=== PATIENT | female | born 1955 | race Two or more races ===

== ENCOUNTER 2024-12-01 16:05 | Emergency (ER) | payer MEDICAID, SELFPAY ==
[2024-12-01 16:50] VITALS: BP 145/74; PULSE 89; RESP 18; TEMP 37; O2SAT 96
--- NOTE | 2024-12-01 16:58 | XR_ITS ---
Examination: CT cervical spine without contrast 2-D sagittal reconstructions 2-D coronal reconstructions 3-D reconstructions. Exam date and time:December 01, 2024 1842 hrs. Indications: Onset neck pain beginning 3 days ago CTDI:vol (mGy) 15.3 DLP: (mGycm) 338 Technique: Multiple 2 mm axial sections of the cervical spine have been obtained. The coronal and sagittal reconstructions have been obtained. 3-D reconstructions have been obtained. Low dose protocols were performed. One or more of the following dose reduction techniques were used; automated exposure control, adjustment of the mA and/or KV according to patient size, use of iterative reconstruction technique. Findings: Axial sections demonstrate intact base of the skull. C1 exhibit satisfactory relationship to the odontoid. No acute cervical vertebral body fracture seen. Alignment posterior spinous processes satisfactory. Significant disc narrowing C6-C7 with posterior osteophyte formation C6-C7 2 mm central subarticular osteophyte disc complex with mild bilateral neural foraminal stenosis Impression: No acute cervical fracture. Impression: Significant degenerative disc disease C6-C7 Consider elective MRI cervical spine without contrast follow-up for best assessment of acquired soft tissue spinal stenosis
--- NOTE | 2024-12-01 16:58 | PD.EDRME ---
Rapid Medical Screening Exam RME Arrival date/time: 12/01/24 16:05 69-year-old female presents emergency department complains of neck pain Chief Complaint: Neck Pain/Injury Time Seen by Provider: 12/01/24 16:56 Vital signs: Vital Signs Temperature 98.6 F 12/01/24 16:50 Pulse Rate 89 12/01/24 16:50 Respiratory Rate 18 12/01/24 16:50 Blood Pressure 145/74 H 12/01/24 16:50 Pulse Oximetry (%) 96 12/01/24 16:50 Oxygen Delivery Method Room Air 12/01/24 16:50
[2024-12-01] MEDS: IBUPROFEN TAB 400 MG TABLET 800 MG PO (17:04)
[2024-12-01] MEDS: CYCLObenzaPRINE 5 MG TABLET PO (17:04)
[2024-12-01 19:30] VITALS: BP 124/74; PULSE 88; RESP 17; TEMP 36.8; O2SAT 96
--- NOTE | 2024-12-01 20:08 | PD.EDNECK ---
ED Neck Injury Pain RME/HPI General Chief Complaint: Neck Pain/Injury Stated Complaint: CAN'T MOVE NECK X 3 DAYS BECAUSE OF PAIN Time Seen by Provider: 12/01/24 16:56 Arrival date/time: 12/01/24 16:05 RME / HPI RME / HPI Narrative: 69-year-old female patient came in for evaluation regarding posterior neck pain. Onset of symptoms for the last 3 days as worsening posterior neck pain associated with difficulty moving the neck. Denies any fever denies any fall denies any other complaints patient is ambulatory with rollator walker. Related Data Home Medications ?Medication ?Instructions ?Recorded ?Confirmed atorvastatin 10 mg tablet 20 mg PO QDAY 03/30/20 06/02/24 sitagliptin phosphate 50 mg tablet 50 mg PO QDAY 03/30/20 06/02/24 (Januvia) famotidine 40 mg tablet 20 mg PO QAM 08/17/20 06/02/24 levothyroxine 75 mcg tablet 75 mcg PO QAM 07/18/21 06/02/24 hydrochlorothiazide 25 mg tablet 25 mg PO QAM 06/09/22 06/02/24 amlodipine 10 mg tablet 10 mg PO QDAY 06/02/24 06/03/24 Previous Rx's ?Medication ?Instructions ?Recorded ibuprofen 600 mg tablet 600 mg PO Q8H PRN pain #30 tabs 06/04/24 hydrocodone 5 mg-acetaminophen 325 1 tab PO BID PRN pain #10 tabs 06/11/24 mg tablet ibuprofen 600 mg tablet 600 mg PO Q8H PRN fever or pain 08/18/24 #30 tabs meloxicam 15 mg tablet 15 mg PO QDAY #20 tabs 12/01/24 naproxen 500 mg tablet (Naprosyn) 500 mg PO BID PRN pain #20 tabs 12/01/24 Allergies Allergy/AdvReac Type Severity Reaction Status Date / Time No Known Allergies Allergy Verified 12/01/24 16:06 Review of Systems Review of Systems Narrative Review of Systems: Review of system reviewed and within normal limits except mentioned in HPI ED Exam Narrative Physical exam: VITAL SIGNS: Reviewed. GENERAL APPEARANCE: Alert and interactive, follows commands, no acute distress, HEAD AND FACE: Non-traumatic. ENT: PERRL, pink conjunctivitis, eyelid no trauma, Mucous membrane moist. NECK: Posterior neck tenderness, with limitation of range of motion CHEST: No tenderness, no crepitus, no paradoxical movement, no retractions. LUNGS: Clear, well ventilated, symmetric, no rales, no wheezing, no ronchi, no stridor, good breath sounds bilaterally. HEART: Regular rate, regular rhythm, no murmur, no gallops. ABDOMEN: Soft, positive bowel sounds, nondistended, no guarding, nontender, no rebound, no masses, RECTAL: Deferred. GENITAL: Deferred. NEUROLOGICAL: Gross motor function intact sensory function intact, Appropriate for age. MUSCULOSKELETAL: low back nontender, full range of motion. EXTREMITIES: Nontender, full range of motion. SKIN: Color pink, dry, no rash, no lacerations, no abrasions, no contusions. LYMPHATICS: Deferred. Course Quality Measures none Orders Category Date Time Status CT cervical spine wo con Stat Exams 12/01/24 16:58 Completed CYCLObenzaPRINE [Flexeril] Med 12/01/24 16:57 Discontinued 5 mg PO X1 ONE Ibuprofen Tab [Motrin Tab] Med 12/01/24 16:57 Discontinued 800 mg PO X1 ONE Vital Signs Vital signs: Vital Signs Temperature 98.6 F 12/01/24 16:50 Pulse Rate 89 12/01/24 16:50 Respiratory Rate 18 12/01/24 16:50 Blood Pressure 145/74 H 12/01/24 16:50 Pulse Oximetry (%) 96 12/01/24 16:50 Oxygen Delivery Method Room Air 12/01/24 16:50 Neck Pain MDM Narrative MDM Narrative:: 69-year-old female patient came in for evaluation regarding posterior neck pain. Onset of symptoms for the last 3 days as worsening posterior neck pain associated with difficulty moving the neck. Denies any fever denies any fall denies any other complaints patient is ambulatory with rollator walker. CT scan of the cervical spine showed degenerative changes between C6 and C7. Otherwise unremarkable. Patient received Flexeril and ibuprofen with significant for many pain. Patient data External records reviewed:: None Clinical information provided by:: patient Social determinants that could affect healthcare access:: none Patient has the following chronic illnesses:: None How is presenting disease/condition affected by chronic disease/condition?: exacerbated by Evaluation data The following diagnostics were reviewed and interpreted by me:: lab results and radiology exam(s) Lab and/or radiology exams considered but not ordered:: None Interpretation Summary: CT scan of the neck showed degenerative changes between C6 and C7 otherwise unremarkable. Results discussed with the patient. None Medications / Prescriptions Medications or Prescriptions considered but not ordered:: None Medication administrations:: Medication Administration History Discontinued Medications Cyclobenzaprine HCl (Cyclobenzaprine 5 Mg Tablet) 5 mg PO X1 ONE Stop: 12/01/24 16:58 Last Admin: 12/01/24 17:04 Dose: 5 mg Documented By: OA Ibuprofen (Ibuprofen Tab 400 Mg Tablet) 800 mg PO X1 ONE Stop: 12/01/24 16:58 Last Admin: 12/01/24 17:04 Dose: 800 mg Documented By: OA Flexeril and Motrin Consultations Consultation(s) initiated? (list below): No Diagnosis Neck Differential Diagnosis: disc disorder of cervical region, closed subluxation of cervical spine and torticollis Most likely diagnosis given after review of the tests above:: Cervical spondylosis Admission Indicated Admission indicated?: not indicated Explain why admission is indicated or not indicated:: Stable Admission Request Was there a request for admission?: No Disposition Plan Disposition Plan: Discharge Discharge Attestation Discharge Attestation: The patient was given an opportunity to ask questions and understood the discharge instructions. Discharge instructions specifically effects, indications for sooner follow up or return to the emergency department, and the expected course of current diagnosis. Patient condition: Stable Discharge Plan Plan Patient Disposition: HOME (Self Care) Disposition Comment: stable Prescriptions/Referrals Prescriptions/Med Rec: New meloxicam 15 mg tablet 15 mg PO QDAY Qty: 20 0RF naproxen [Naprosyn] 500 mg tablet 500 mg PO BID PRN (Reason: pain) Qty: 20 0RF No Action famotidine 40 mg Tablet 20 mg PO QAM Rx Instructions: TAKE 1 TABLET BY MOUTH EVERYDAY IN THE MORNING hydrochlorothiazide 25 mg Tablet 25 mg PO QAM Januvia 50 mg Tablet 50 mg PO QDAY Rx Instructions: TAKE ONE TABLET BY MOUTH DAILY atorvastatin 10 mg Tablet 20 mg PO QDAY Rx Instructions: TAKE 1 TABLET BY MOUTH EVERY DAY levothyroxine 75 mcg Tablet 75 mcg PO QAM Rx Instructions: TAKE 1 TABLET BY MOUTH IN THE MORNING ON AN EMPTY STOMACH hydrocodone-acetaminophen 5-325 mg tablet 1 tab PO BID MDD 10 PRN (Reason: pain) Qty: 10 0RF ibuprofen 600 mg tablet 600 mg PO Q8H PRN (Reason: fever or pain) Qty: 30 0RF amlodipine 10 mg Tablet 10 mg PO QDAY ibuprofen 600 mg tablet 600 mg PO Q8H PRN (Reason: pain) Qty: 30 0RF Referrals: Ridge Morton MD [Primary Care Provider] - In 1 week Problem List Clinical Impression: Cervical spondylosis Patient/Caregiver Discharge Instructions Discharge Activity: activity as tolerated Education Materials: ED Neck Pain Additional Instructions: Thank you for the opportunity for serving you today. You are stable for discharged . You are advised to: Follow-up with your PCP in 1 to 2 days and ask your PCP to refer to physical therapy Return to ED for worsening of symptoms Increase oral fluids Take medication as prescribed Print Language: Kinyarwanda Stand Alone Forms: Christal Award Info., Patient Portal Info Letter PA/SAIBNE Supervising Physician ANDREY/SABINE Supervising Physician: MD Ortega
== END 2024-12-01 20:17 | disposition home or self-care (01) ==
PROVIDERS: Emergency Provider Emergency Medicine; PCP Family Medicine
DX: M47.812 Spondylosis without myelopathy or radiculopathy, cervical region (principal); M50.323 Other cervical disc degeneration at C6-C7 level
CPT/HCPCS: 72125; 99284; A9270

== ENCOUNTER 2025-02-13 18:56 | Emergency (ER) | payer MEDICAID, SELFPAY ==
[2025-02-13 20:12] VITALS: BP 157/82; PULSE 78; RESP 18; TEMP 36.7; O2SAT 92
--- NOTE | 2025-02-13 20:46 | XR_ITS ---
Examination: CT abdomen and pelvis without contrast. Coronal 3-D reconstructions. Sagittal 2-D reconstructions. Date and time of exam:February 14, 2025 1115 hrs. Comparison September 26, 2022 Indications: Right-sided flank pain beginning one week ago CTDI: vol (mGy): 16.1 DLP: (mGycm): 894 Technique: Axial images of the abdomen have been obtained, 3 mm slice thickness Intravenous contrast material has not been administered. Low dose protocols were performed. One or more of the following dose reduction techniques were used; automated exposure control, adjustment of the mA and/or KV according to patient size, use of iterative reconstruction technique. Findings: No focal liver or splenic lesions No gallstones No pancreatic mass Moderate bilateral renal parenchymal scar formation with minimal perinephric stranding No renal or ureteral calculi, no hydronephrosis 8mm fat-containing umbilical hernia Normal appendix No bowel obstruction No diverticulitis Atrophic uterus No bladder mass or bladder calculi Impression: Moderate bilateral renal parenchymal scar formation with minimal perinephric stranding, consider urinary tract infection No hydronephrosis or ureteral calculi Normal appendix No bladder mass or bladder calculi
--- NOTE | 2025-02-13 20:46 | XR_ITS ---
Examination: PA lateral chest 2 views Technique: Upright PA lateral chest 2 views Exam date and time: February 13, 20252058 hrs. Indications: Shortness of breath hypoxia today. Findings: Left base pneumonia, obscuring detail left hemidiaphragm Lingular segment pneumonia Mild prominence of ventricle Moderate vascular congestion Prominent osteopenia Impression: Left base and lingular segment pneumonia
[2025-02-13 21:21] LABS: Basophils # (Auto) 0.1 Thou/mm3 (0.0-0.2); Basophils % (Auto) 1 % (0-2.5); Eosinophils # (Auto) 0.4 Thou/mm3 (0.0-0.5); Eosinophils % (Auto) 3 % (0-10); Hematocrit 41.9 % (36.0-46.0); Hemoglobin 13.8 g/dL (12.0-16.0); Immature Granulocytes % (Auto) 0 % (0-0); Immature Granulocytes Auto 0.04 Thou/mm3 (0.00-0.00); Lymphocytes % (Auto) 25 % (10-50); Mean Corpuscular HGB Conc 32.9 g/dl (31.0-37.0); Mean Corpuscular Hemoglobin 28.5 pg (25.0-35.0); Mean Corpuscular Volume 86 fL (80-100); Monocytes # (Auto) 1.1 Thou/mm3 (0.0-0.8); Monocytes % (Auto) 9 % (0-12); Neutrophils # (Auto) 7.7 Thou/mm3 (1.8-7.7); Neutrophils % (Auto) 63 % (37-80); Nucleated Red Blood Cell % 0 /100 WBC (0); Platelet Count 351 Thou/mm3 (140-440); RDW Standard Deviation 45.2 fL (36.4-46.3); Red Blood Count 4.85 Miln/mm3 (4.00-5.20); White Blood Count 12.3 Thou/mm3 (3.6-11.0)
--- NOTE | 2025-02-13 21:37 | PD.EDFMALE ---
ED Female Urogenital RME/HPI General Chief complaint: Urogenital-Female Stated complaint: R FLANK PAIN X1 WEEK Time Seen by Provider: 02/13/25 20:13 Arrival date/time: 02/13/25 18:56 Limitations: no limitations RME / HPI RME / HPI Narrative: 69-year-old female with past medical history of hypertension, hyperlipidemia, diabetes, thyroid disorder presents for evaluation of right flank pain x 1 week She reports constant, aching of the right flank without radiation. Patient notes intermittent shortness of breath and cough x 1 week. Denies hematuria, dysuria, fever, chills, chest pain,leg swelling. Patient reports she uses CPAP machine at night. Denies recent travel, known sick contacts, recent surgery, recent antibiotic use. Related Data Home Medications ?Medication ?Instructions ?Recorded ?Confirmed atorvastatin 10 mg tablet 20 mg PO QDAY 03/30/20 06/02/24 sitagliptin phosphate 50 mg tablet 50 mg PO QDAY 03/30/20 06/02/24 (Januvia) famotidine 40 mg tablet 20 mg PO QAM 08/17/20 06/02/24 levothyroxine 75 mcg tablet 75 mcg PO QAM 07/18/21 06/02/24 hydrochlorothiazide 25 mg tablet 25 mg PO QAM 06/09/22 06/02/24 amlodipine 10 mg tablet 10 mg PO QDAY 06/02/24 06/03/24 Previous Rx's ?Medication ?Instructions ?Recorded ibuprofen 600 mg tablet 600 mg PO Q8H PRN pain #30 tabs 06/04/24 hydrocodone 5 mg-acetaminophen 325 1 tab PO BID PRN pain #10 tabs 06/11/24 mg tablet ibuprofen 600 mg tablet 600 mg PO Q8H PRN fever or pain 08/18/24 #30 tabs meloxicam 15 mg tablet 15 mg PO QDAY #20 tabs 12/01/24 naproxen 500 mg tablet (Naprosyn) 500 mg PO BID PRN pain #20 tabs 12/01/24 Allergies Allergy/AdvReac Type Severity Reaction Status Date / Time No Known Allergies Allergy Verified 02/13/25 18:57 Review of Systems Constitutional Constitutional: Reports body ache(s), Denies chills, Denies excessive sweating, Denies fever(s) and Denies weakness ENT Ears, Nose, Mouth, and Throat: Denies neck pain and Denies vertigo Cardiovascular Cardiovascular: Denies chest pain, Denies diaphoresis, Reports dyspnea and Denies leg edema Respiratory Respiratory: Denies change in phlegm color, Reports cough, Reports dyspnea, Denies excessive phlegm production and Denies hemoptysis Gastrointestinal Gastrointestinal: Denies abdominal pain, Denies diarrhea, Denies hematochezia, Denies nausea and Denies vomiting Genitourinary Genitourinary: Denies dysuria, Reports flank pain, Denies hematuria and Denies pelvic pain Musculoskeletal Musculoskeletal: Denies abnormal gait, Denies back pain, Denies neck pain and Denies numbness Integumentary/Breasts Skin/Breast: Denies change in pigmentation and Denies erythema Neurologic Neurologic: Denies abnormal gait, Denies confusion, Denies numbness, Denies vertigo and Denies weakness Psychiatric Psychiatric: Denies confusion Endocrine Endocrine: Denies excessive sweating Past Medical History Past Medical History NEUROLOGIC: Positive Neurological Disorders and Migraine; Negative Seizures, Amyotrophic Lateral Sclerosis (ALS/Susan Gehrig's) or Head Trauma CARDIAC: Positive Cardiac Disorders, Hypercholesterolemia and Hypertension; Negative Congestive Heart Failure, Edema or Cellulitis RESPIRATORY: Negative Chronic Obstructive Pulmonary Disease (COPD), Asthma, Pneumonia, Tuberculosis or Sleep Apnea GASTROINTESTINAL: Positive Gastrointestinal Disorders, Gastroesophageal Reflux Disease and Obesity; Negative Hepatitis GENITOURINARY: Negative Genitourinary Disorders or Renal Disease REPRODUCTIVE: Positive Previous Pregnancies MUSCULOSKELETAL: Positive Musculoskeletal Disorders and Arthritis ENT: Positive Cataracts; Negative Head Trauma ENDOCRINE: Positive Endocrine Disorders, Diabetes Mellitus Type 2 and Hypothyroidism; Negative Diabetes Mellitus Type 1 HEMATOLOGIC: Positive Blood Disorders and Anemia; Negative Sickle Cell Disease OTHER HISTORY: Positive Falls and Measles; Negative Hospitalization, Autoimmune Disease, Shingles, Blood Transfusions, Blood Transfusion Reaction, Anesthesia Reactions, Organ Transplant, Chemotherapy, Radiation Therapy, MRSA, Chicken Pox, Mumps or Cancer Family History FAMILY HISTORY: Positive Family Cardiac Disorders, Family Cancer and Family Surgery; Negative Family Psychiatric Problems, Family Respiratory Disorders, Family Gastrointestinal Problems or Family Anesthesia Reaction Surgical History SURGICAL: Positive Open Reduction Internal Fixation (Right ankle has metal), Tubal Ligation and Section; Negative Cardiac Surgery, Pacemaker, Ear Surgery, Abdominal Surgery, Nephrectomy, Neurologic Surgery, Brain Shunt or Organ Transplant Social History SMOKING STATUS: Never smoker ED Exam General Limitations: Present no limitations General appearance: Present alert and in no apparent distress Head Head exam: Present atraumatic and normocephalic Eye Eye exam: Present normal appearance, PERRL and EOMI; Absent scleral icterus ENT ENT exam: Present normal exam, mucous membranes moist and other (lower endentulous ) Chest Chest inspection: Present normal inspection and symmetric chest wall rise Respiratory Respiratory exam: Present normal lung sounds bilaterally; Absent respiratory distress or wheezes Cardiovascular Cardiovascular exam: Present regular rate and +S1 Abdominal Exam Abdominal exam: Present soft; Absent distention, tenderness or guarding Back Exam Back exam: Present CVA tenderness (R); Absent CVA tenderness (L) Neurological Exam Neurological exam: Present alert Psychiatric Psychiatric exam: Present normal affect Skin Skin exam: Present warm, dry and normal color Course Quality Measures none Orders Category Date Time Status Insert IV NOW Care 02/14/25 03:[address] abdomen pelvis wo con Stat Exams 02/13/25 20:46 Ordered CXR2 [XR chest 2V] Stat Exams 02/13/25 20:46 Completed BNP [B-Type Natriuretic Peptide] Stat Lab 02/13/25 21:10 Completed CBC Stat Lab 02/13/25 21:10 Completed CMP [Comprehensive Metabolic Panel] Stat Lab 02/13/25 21:10 Completed Lipase Stat Lab 02/13/25 21:10 Completed UA, C/S IF [Urinalysis, C/S if Indicated] Stat Lab 02/14/25 00:13 Completed HYDROcodone*/APAP 5/325 [[place] 5/325] Med 02/13/25 20:46 Discontinued 1 tab PO X1 ONE HYDROcodone*/APAP 5/325 [[place] 5/325] Med 02/14/25 01:03 Discontinued 1 tab PO X1 ONE HYDROmorphone INJ [Dilaudid Inj] Med 02/14/25 03:22 Discontinued 1 mg IVP X1 ONE Sodium Chloride 0.9% 500 ml [Ns] 500 ml Med 02/14/25 03:23 Discontinued IV 999 mls/hr Reevaluation(s) Reevaluation #1: pt reports 10/10 pain following norco 5mg x2. Will give 1mg dilaudid. Time: 04:09 Vital Signs Vital signs: Vital Signs Temperature 98.1 F 02/13/25 20:12 Pulse Rate 78 02/13/25 20:12 Respiratory Rate 18 02/13/25 20:12 Blood Pressure 157/82 H 02/13/25 20:12 Pulse Oximetry (%) 92 L 02/13/25 20:12 Oxygen Delivery Method Room Air 02/13/25 20:12 Pulse ox 95% on room air, within normal limits. Urogenital - Female Patient data External records reviewed:: [facility] previous records Clinical information provided by:: patient Social determinants that could affect healthcare access:: none Patient has the following chronic illnesses:: DM, HTN, HLD, CKD. How is presenting disease/condition affected by chronic disease/condition?: exacerbated by Evaluation data The following diagnostics were reviewed and interpreted by me:: lab results and radiology exam(s) Lab and/or radiology exams considered but not ordered:: Pending CT. Interpretation Summary: Borderline leukocytosis, no evidence of anemia. Mildly hyperglycemic. Decreased renal function. No evidence of infection on UA. Lipase mildly elevated. Medications / Prescriptions Medications or Prescriptions considered but not ordered:: Rx given. Medication administrations:: Medication Administration History Discontinued Medications Hydrocodone Bitart/Acetaminophen (Hydrocodone/Apap 5/325 Tablet) 1 tab PO X1 ONE Stop: 02/13/25 20:47 Last Admin: 02/13/25 23:18 Dose: 1 tab Documented By: HOLLY Hydrocodone Bitart/Acetaminophen (Hydrocodone/Apap 5/325 Tablet) 1 tab PO X1 ONE Stop: 02/14/25 01:04 Last Admin: 02/14/25 01:26 Dose: 1 tab Documented By: HOLLY Hydromorphone HCl (Hydromorphone Inj 2 Mg/Ml Vial) 1 mg IVP X1 ONE Stop: 02/14/25 03:23 Last Admin: 02/14/25 04:22 Dose: 1 mg Documented By: SMITH Sodium Chloride (Ns) 500 mls @ 999 mls/hr IV .Q31M ONE Stop: 02/14/25 03:53 Last Infusion: 02/14/25 05:02 Dose: Infused Documented By: Admin: 02/14/25 04:20 Dose: 999 mls/hr Documented By: SMITH Rx given. Consultations Consultation(s) initiated? (list below): No Diagnosis Urogenital Female Differential Diagnosis: urinary tract infection and other Most likely diagnosis given after review of the tests above:: Pending CT. Admission Indicated Admission indicated?: indicated Admission Request Was there a request for admission?: No Disposition Plan Disposition Plan: other (specify) (Transfer care to Dr. Jacobs at [address] abdomen and pelvis.) Discharge Plan Plan Patient Disposition: Admit Acute Care w/in Hospital Prescriptions/Referrals Prescriptions/Med Rec: No Action famotidine 40 mg Tablet 20 mg PO QAM Rx Instructions: TAKE 1 TABLET BY MOUTH EVERYDAY IN THE MORNING hydrochlorothiazide 25 mg Tablet 25 mg PO QAM Januvia 50 mg Tablet 50 mg PO QDAY Rx Instructions: TAKE ONE TABLET BY MOUTH DAILY atorvastatin 10 mg Tablet 20 mg PO QDAY Rx Instructions: TAKE 1 TABLET BY MOUTH EVERY DAY levothyroxine 75 mcg Tablet 75 mcg PO QAM Rx Instructions: TAKE 1 TABLET BY MOUTH IN THE MORNING ON AN EMPTY STOMACH hydrocodone-acetaminophen 5-325 mg tablet 1 tab PO BID MDD 10 PRN (Reason: pain) Qty: 10 0RF ibuprofen 600 mg tablet 600 mg PO Q8H PRN (Reason: fever or pain) Qty: 30 0RF amlodipine 10 mg Tablet 10 mg PO QDAY ibuprofen 600 mg tablet 600 mg PO Q8H PRN (Reason: pain) Qty: 30 0RF meloxicam 15 mg tablet 15 mg PO QDAY Qty: 20 0RF naproxen [Naprosyn] 500 mg tablet 500 mg PO BID PRN (Reason: pain) Qty: 20 0RF Referrals: Arthur Mancuso PA-C [Primary Care Provider] - In 1 week Problem List Clinical Impression: Abdominal pain Patient/Caregiver Discharge Instructions Other Activity Instructions:: Transfer of care to Dr. Jacobs at 0545 02/14/2025 Print Language: Indonesian Stand Alone Forms: Christal Award Info., Patient Portal Info Letter PA/SABINE Supervising Physician PA/SABINE Supervising Physician: Dr. Jacobs
[2025-02-13 21:39] LABS: B-Type Natriuretic Peptide < 20 pg/mL (0-100)
[2025-02-13 21:41] LABS: Alanine Aminotransferase 15 U/L (10-49); Albumin, Serum 4.5 gm/dL (3.4-4.8); Albumin/Globulin Ratio 1.2 (1.2-2.2); Alkaline Phosphatase 102 U/L (46-116); Anion Gap 11 (7-16); Aspartate Amino Transferase 17 U/L (0-34); BUN/Creatinine Ratio 25 Ratio (12-20); Bilirubin,Total 0.5 mg/dL (0.3-1.2); Blood Urea Nitrogen 38 mg/dL (9-23); Carbon Dioxide 25.5 mMol/L (20.0-31.0); Chloride 103 mMol/L (98-107); Creatinine (Component) 1.5 mg/dL (0.6-1.3); Globulin 3.8 gm/dL (2.3-3.5); Glucose 118 mg/dL (74-106); Lipase 57 U/L (12-53); Osmolality,Calculated 287 (275-295); Potassium 3.7 mMol/L (3.4-5.1); Sodium 139 mMol/L (136-145); Total Protein 8.3 gm/dL (5.7-8.2); eGFR 37 See Note
[2025-02-13] MEDS: HYDROcodone/APAP 5/325 TABLET 1 TAB PO (23:18)
--- NOTE | 2025-02-13 23:51 | PC.CC ---
Lydia WHITLOCK arranged transportation for CT with [facility] for 1200.
[2025-02-14] VITALS (7 sets, daily range): BP systolic 145–178; BP diastolic 75–93; PULSE 18–76; RESP 16–18; TEMP 36.4–36.6; O2SAT 92–97
[2025-02-14 00:34] LABS: Collection Type, Urine Clean Catch
[2025-02-14 00:41] LABS: Bilirubin,Urine Negative (Negative); Blood,Urine Negative (Negative); Clarity,Urine Clear (Clear/Hazy); Color,Urine Lt-Yellow (Lt Yel-Yel); Culture Indicated,Urine Not Indicated; Glucose, Urine Negative (Negative); Ketones,Urine Negative (Negative); Leukocyte Esterase,Urine Negative (Negative); Nitrite,Urine Negative (Negative); Protein,Urine Negative (Neg - Trace); RBC,Urine 1 /hpf (0-3); Squamous Epithelial Cell,Urine 1 /hpf (0-5); Urobilinogen,Urine Negative mg/dL (0.0-1.0); WBC,Urine 1 /hpf (0-5)
[2025-02-14] MEDS: HYDROcodone/APAP 5/325 TABLET 1 TAB PO (01:26)
[2025-02-14] MEDS: SODIUM CHLORIDE 0.9% 500 ML 500 ML 999 ML IV (04:20)
[2025-02-14] MEDS: HYDROmorphone INJ 2 MG/ML VIAL 1 MG IVP (04:22)
--- NOTE | 2025-02-14 04:28 | PC.NURSE ---
Assuming care of pt now.
--- NOTE | 2025-02-14 05:04 | PC.NURSE ---
Pt asleep after pain med. O2 sat dropped to 87% after med. pt placed on 2L O2 NC.
--- NOTE | 2025-02-14 06:02 | EDNOTE_ITS ---
Emergency Room Addendum Addendum Narrative: 0600: Care assumed from Dr. Jacobs, the previous shift emergency physician. Past medical, surgical, social and family history reviewed. Vitals and home medications reviewed. I will assume the care of the patient at this time, pending abdomen/pelvis CT and final disposition. Please refer to the emergency department record for history and examination from initial visit.? Physical exam by me shows patient under no acute distress at this time. 0950: Patient satting on 98% on room air. No home oxygen. She came in for right flank pain onset 1 week. No nausea or vomiting. No numbness or tingling. 1120: Patient remains clinically stable throughout the emergency department visit. Re-assessment at the time of disposition demonstrates that the patient is in no acute distress. We reviewed all the results, analysis, and treatment plans. Patient is amenable to discharge. Strict return precautions were outlined. Patient was discharged in stable condition. Diagnosis: - Right flank pain RADIOLOGY Procedure(s): XR ribs RT 2V Accession Number(s): [id number] cc: Arthur Mancuso PA-C; Lew Painter MD; Tasia Madden MD~ Examination: Ribs, right, unilateral 4 views Exam date and time: AP, RPO, LPO, coned AP lower right ribs 4 views Indications: Right-sided rib pain today, no trauma Findings: No pneumothorax Significant osteopenia Ribs appear intact Impression: Ribs appear intact Dictated By: Lew Painter MD Procedure(s): XR lumbar spine 2-3V Accession Number(s): [id number] cc: Arthur Mancuso PA-C; Lew Painter MD; Tasia Madden MD~ Examination: Lumbar spine 3 views Technique: AP lateral coned lateral lower lumbar spine 3 views Exam date and time: 06/27/2025 1001 hrs. Indications: Back pain beginning today. Findings: Prominent osteopenia No acute lumbar fracture Mild to moderate disc narrowing L1-L2, L4-L5 No spondylolisthesis Moderate lumbar spondylosis Impression: Mild to moderate disc narrowing L1-L2, L4-L5 No renal calculi visible Dictated By: Lew Painter MD Procedure(s): CT abdomen pelvis wo con Accession Number(s): [id number] cc: Troy Lugo PA-C; Arthur Mancuso PA-C; Lew Painter MD~ Examination: CT abdomen and pelvis without contrast. Coronal 3-D reconstructions. Sagittal 2-D reconstructions. Date and time of exam:February 14, 2025 1115 hrs. Comparison September 26, 2022 Indications: Right-sided flank pain beginning one week ago CTDI: vol (mGy): 16.1 DLP: (mGycm): 894 Technique: Axial images of the abdomen have been obtained, 3 mm slice thickness Intravenous contrast material has not been administered. Low dose protocols were performed. One or more of the following dose reduction techniques were used; automated exposure control, adjustment of the mA and/or KV according to patient size, use of iterative reconstruction technique. Findings: No focal liver or splenic lesions No gallstones No pancreatic mass Moderate bilateral renal parenchymal scar formation with minimal perinephric stranding No renal or ureteral calculi, no hydronephrosis 8mm fat-containing umbilical hernia Normal appendix No bowel obstruction No diverticulitis Atrophic uterus No bladder mass or bladder calculi Impression: Moderate bilateral renal parenchymal scar formation with minimal perinephric stranding, consider urinary tract infection No hydronephrosis or ureteral calculi Normal appendix No bladder mass or bladder calculi Dictated By: Lew Painter MD
--- NOTE | 2025-02-14 09:54 | XR_ITS ---
Examination: Ribs, right, unilateral 4 views Exam date and time: AP, RPO, LPO, coned AP lower right ribs 4 views Indications: Right-sided rib pain today, no trauma Findings: No pneumothorax Significant osteopenia Ribs appear intact Impression: Ribs appear intact
--- NOTE | 2025-02-14 09:54 | XR_ITS ---
Examination: Lumbar spine 3 views Technique: AP lateral coned lateral lower lumbar spine 3 views Exam date and time: 06/27/2025 1001 hrs. Indications: Back pain beginning today. Findings: Prominent osteopenia No acute lumbar fracture Mild to moderate disc narrowing L1-L2, L4-L5 No spondylolisthesis Moderate lumbar spondylosis Impression: Mild to moderate disc narrowing L1-L2, L4-L5 No renal calculi visible
[2025-02-14 10:10] LABS: Lactate (Lactic Acid) 0.8 mMol/L (0.4-2.0)
[2025-02-14 10:38] LABS: Procalcitonin 0.04 ng/ml (0.0-0.49)
== END 2025-02-14 13:14 | disposition home or self-care (01) ==
PROVIDERS: Physician Assistant; Emergency Provider Emergency Medicine; PCP Physician Assistant
DX: R10.9 Unspecified abdominal pain (principal); E78.5 Hyperlipidemia, unspecified; E11.9 Type 2 diabetes mellitus without complications; I10 Essential (primary) hypertension; R07.81 Pleurodynia; M54.9 Dorsalgia, unspecified; R06.02 Shortness of breath
CPT/HCPCS: 36415; 71046; 71100; 72100; 74176; 80053; 81001; 83605; 83690; 83880; 84145; 85025; 96360; 99284; J3490; J7040; A9270

== ENCOUNTER → 2025-02-16 | Outpatient (CLI) | payer MEDICAID, SELFPAY ==
--- NOTE | 2025-02-16 11:30 | XR_ITS ---
Examination: Retroperitoneal ultrasound, complete Technique: Multiple high resolution grayscale images of the retroperitoneum obtained, including kidneys and bladder. Exam date and time:February 16, 2025 1126 hrs. Indications: Moderate bilateral renal parenchymal scar formation in perinephric stranding on CT abdomen February 14, 2025 Findings: Right kidney 10.0 cm cortex 2.2 cm Left kidney 8.5 cm cortex 1.3 cm Moderate bilateral renal parenchymal scar formation No hydronephrosis Contracted urinary bladder Impression: Small left kidney with left renal cortical thinning Moderate bilateral renal parenchymal scar formation No hydronephrosis
[2025-02-16 13:11] LABS: Collection Type, Urine Clean Catch; Squamous Epithelial Cell,Urine 0 /hpf (0-5)
[2025-02-16 14:05] LABS: Basophils # (Auto) 0.1 Thou/mm3 (0.0-0.2); Basophils % (Auto) 0 % (0-2.5); Eosinophils # (Auto) 0.4 Thou/mm3 (0.0-0.5); Eosinophils % (Auto) 4 % (0-10); Hemoglobin 12.6 g/dL (12.0-16.0); Immature Granulocytes % (Auto) 0 % (0-0); Immature Granulocytes Auto 0.05 Thou/mm3 (0.00-0.00); Lymphocytes # (Auto) 2.5 Thou/mm3 (1.0-4.8); Lymphocytes % (Auto) 20 % (10-50); Mean Corpuscular HGB Conc 33.2 g/dl (31.0-37.0); Mean Corpuscular Hemoglobin 28.5 pg (25.0-35.0); Mean Corpuscular Volume 86 fL (80-100); Monocytes % (Auto) 8 % (0-12); Neutrophils # (Auto) 8.5 Thou/mm3 (1.8-7.7); Neutrophils % (Auto) 68 % (37-80); Nucleated Red Blood Cell % 0 /100 WBC (0); Platelet Count 346 Thou/mm3 (140-440); RDW Standard Deviation 45.3 fL (36.4-46.3); Red Blood Count 4.42 Miln/mm3 (4.00-5.20); White Blood Count 12.6 Thou/mm3 (3.6-11.0)
[2025-02-16 14:07] LABS: Bilirubin,Urine Negative (Negative); Blood,Urine Negative (Negative); Clarity,Urine Clear (Clear/Hazy); Color,Urine Colorless (Lt Yel-Yel); Glucose, Urine Negative (Negative); Ketones,Urine Negative (Negative); Leukocyte Esterase,Urine Negative (Negative); Nitrite,Urine Negative (Negative); Protein,Urine Negative (Neg - Trace); RBC,Urine < 1 /hpf (0-3); Specific Gravity,Urine 1.008 (1.001-1.035); Urobilinogen,Urine Negative mg/dL (0.0-1.0); WBC,Urine < 1 /hpf (0-5)
[2025-02-16 14:14] LABS: Creatinine MALB Rnd Ur 25 mg/dL (30-125); Microalbumin Creat Ratio 16 mg/gCrea (<30); Microalbumin, Random Urine 4 mg/L (0-300)
[2025-02-16 14:16] LABS: Glucose Estimated Average 128 mg/dL (80-131); Hemoglobin A1C 6.1 % Hgb (4.8-6.0); Parathyroid Hormone Intact 127.2 pg/ml (18.5-88.0)
[2025-02-16 14:17] LABS: Anion Gap 9 (7-16); BUN/Creatinine Ratio 33 Ratio (12-20); Blood Urea Nitrogen 53 mg/dL (9-23); Calcium 10.2 mg/dL (8.3-10.6); Calcium (Corrected) 10.2 mg/dL (8.5-10.1); Chloride 104 mMol/L (98-107); Creatinine (Component) 1.6 mg/dL (0.6-1.3); Glucose 93 mg/dL (74-106); Osmolality,Calculated 291 (275-295); Phosphorous 3.7 mg/dL (2.4-5.1); Potassium 3.6 mMol/L (3.4-5.1); Sodium 139 mMol/L (136-145); eGFR 34 See Note
[2025-02-16 14:21] LABS: Vitamin D 25 Hydroxy Total 27.4 ng/mL (7.3-40.2)
== END | disposition home or self-care (01) ==
LOC: CDIM 11:15 → COPL 11:51
PROVIDERS: PCP Family Medicine; Referring Provider Internal Medicine; Visit Provider Radiology Diagnostic Radiology
DX: N28.89 Other specified disorders of kidney and ureter (principal); I12.9 Hypertensive chronic kidney disease with stage 1 through stage 4 chronic kidney disease, or unspecified chronic kidney disease; E11.22 Type 2 diabetes mellitus with diabetic chronic kidney disease; N18.30 Chronic kidney disease, stage 3 unspecified; E78.5 Hyperlipidemia, unspecified
CPT/HCPCS: 36415; 76770; 80069; 81001; 82043; 82306; 82570; 83036; 83970; 85025

== ENCOUNTER → 2025-08-28 | Outpatient (CLI) | payer MEDICAID, SELFPAY ==
--- NOTE | 2025-08-28 12:40 | XR_ITS ---
Examination: Bone densitometry Date and time of exam: August 28, 2025, 1337 hours INDICATIONS: Postmenopausal, rheumatoid arthritis diagnosis postmenopausal ankle fracture, family history Father osteoporosis Technique: Lumbar spine and hip total bone mineralization values of an calculated. Peak reference and age match control results have been displayed. Findings: Lumbar spine total bone mineralization is 1.057 gm/cm2. This is 0.1 standard deviations above peak reference. This is 2.3 standard deviations above age-matched controls. Hip total bone mineralization is 0.775 gm/cm2 This is 1.4 standard deviations below peak reference. This is 0.2 standard deviations above age-matched controls Impression: There is normal mineralization based on lumbar spine measurements. There is osteopenia on hip measurements
== END | disposition home or self-care (01) ==
LOC: CDIM 13:12
PROVIDERS: PCP Internal Medicine
DX: M85.88 Other specified disorders of bone density and structure, other site (principal)
CPT/HCPCS: 77080